=== PATIENT | female | born 1995 | race Caucasian/White ===

== ENCOUNTER 2020-04-01 14:59 | Outpatient (CLI) | payer OTHER | END 2020-04-01 15:00 | disposition home or self-care (01) | LOC: COV 14:59 | PROVIDERS: ATTEND Family Medicine | DX: Z20.828 Contact with and (suspected) exposure to other viral communicable diseases (principal) ==

== ENCOUNTER 2022-03-12 16:04 | Emergency (ER) | payer OTHER ==
[2022-03-12 16:36] LABS: RAPID STREP SCREEN POSITIVE (Negative)
[2022-03-12] MEDS ORDERED: DEXAMETHASONE 10 MG/ML VIAL IM STA (17:32)
[2022-03-12] MEDS ORDERED: AMOXICILLIN 250 MG CAPSULE PO STA (17:32)
--- NOTE | 2022-03-12 17:47 | ED Physician Documentation ---
PD HPI HEENT - Stated complaint Stated Complaint: SORE THROAT,CHILLS,HEADACHE - Chief complaint Chief Complaint: Heent - History obtained from History obtained from: Patient - Additional information Additional information: Patient comes to the emergency department chief complaint of sore throat for the last couple of days. She states she is felt hot and cold but has not measured a temperature. She states that she even has pain on the outside of her neck because her throat hurts so bad. She states her tonsils feel swollen and it is hard to swallow. No rhinorrhea or cough. No body aches. No other complaints at this time. Review of Systems Ten Systems: 10 systems reviewed and negative Constitutional: reports: Fever (Subjective), Chills Eyes: reports: Reviewed and negative Ears: reports: Reviewed and negative Nose: reports: Reviewed and negative Throat: reports: Sore throat Cardiac: reports: Reviewed and negative Respiratory: reports: Reviewed and negative GI: reports: Reviewed and negative : reports: Reviewed and negative Skin: reports: Reviewed and negative Musculoskeletal: reports: Reviewed and negative Neurologic: reports: Reviewed and negative Psychiatric: reports: Reviewed and negative Endocrine: reports: Reviewed and negative Immunocompromised: reports: Reviewed and negative PD PAST MEDICAL HISTORY - Present Medications Home Medications: Ambulatory Orders Medication Instructions Recorded Confirmed Amoxicillin 500 mg PO TID 7 Days #21 cap 03/12/22 HYDROcod/ACETAM 5/325 [[place] 5/325] 1 - 2 tablet PO Q6H PRN #10 tablet 03/12/22 predniSONE [Deltasone] 60 mg PO DAILY 3 Days #9 tablet 03/12/22 - Allergies Allergies/Adverse Reactions: Allergies Allergy/AdvReac Type Severity Reaction Status Date / Time No Known Drug Allergies Allergy Verified 03/12/22 16:21 PD ED PE NORMAL - Vitals Vital signs reviewed: Yes - General General: Alert and oriented X 3, No acute distress, Well developed/nourished - HEENT HEENT: Atraumatic, PERRL, EOMI, Moist mucous membranes, Other (Voice is muffled. Tonsils are 3+, And along with the uvula and posterior pharynx, or bright red. Thick exudates are noted over both tonsils.) - Neck Neck: Supple, no meningeal sign, Other (Mild bilateral anterior cervical lymphadenopathy.) - Respiratory Respiratory: No respiratory distress (No stridor) - Derm Derm: Normal color, Warm and dry, No rash - Extremities Extremities: No deformity - Neuro Neuro: Alert and oriented X 3 - Psych Psych: Normal mood, Normal affect Results - Vitals Vitals: Vital Signs - 24 hr 03/12/22 16:18 Temperature 36.1 C L Heart Rate 109 H Respiratory 18 Rate Blood Pressure 122/82 H O2 Saturation 98 Oxygen O2 Source Room air - Labs Labs: Laboratory Tests 03/12/22 16:24 Group A Strep Rapid POSITIVE H PD MEDICAL DECISION MAKING - ED course Complexity details: reviewed results, re-evaluated patient, considered differential, d/w patient ED course: The patient strep test was positive. She was treated symptomatically with IM Decadron and a dose of amoxicillin. We have discussed the need for antibiotics, and also, principles of symptomatic management at home. We have discussed the usual indications for return. Departure - Departure Disposition: 01 Home, Self Care Clinical Impression: Strep pharyngitis Condition: Stable Instructions: ED Strep Pharyngitis Conf Prescriptions: Amoxicillin 500 mg PO TID 7 Days #21 cap predniSONE [Deltasone] 60 mg PO DAILY 3 Days #9 tablet HYDROcod/ACETAM 5/325 [[place] 5/325] 1 - 2 tablet PO Q6H PRN #10 tablet PRN Reason: Pain Comments: Your test is positive for strep. Prescriptions for antibiotics, steroids, and pain medication have been electronically transmitted to [facility] pharmacy in [place]. You do not need to take another dose of antibiotic until tomorrow morning, but you may start the other medication whenever you need. Please be sure to drink fluids is much as possible. Your throat should start to feel a lot better in the next 48 hours.
[2022-03-12 17:55] VITALS: BP 118/76
== END 2022-03-12 17:55 | disposition home or self-care (01) ==
LOC: ED 16:04
DX: J02.0 Streptococcal pharyngitis (principal)
CPT/HCPCS: 87430; 96372; 99282; 99283; A9270

== ENCOUNTER 2022-10-01 07:16 | Outpatient (CLI) | payer OTHER | END 2022-10-01 23:59 | disposition EMS.NT | LOC: EMS 07:16 | DX: S61.214A Laceration without foreign body of right ring finger without damage to nail, initial encounter (principal); W26.8XXA Contact with other sharp object(s), not elsewhere classified, initial encounter; Y92.000 Kitchen of unspecified non-institutional (private) residence as the place of occurrence of the external cause ==

== ENCOUNTER 2022-10-01 08:06 | Emergency (ER) | payer OTHER ==
[2022-10-01 08:21] VITALS: BP 107/67
[2022-10-01] MEDS ORDERED: lidocaine 1% 20 ML MDV SUBQ ONE (09:24)
[2022-10-01] MEDS ORDERED: BACITRACIN ZINC OINT 1 PACKET TOP STA (10:05)
[2022-10-01] MEDS ORDERED: TETANUS/DIPHTHERIA/PERTUSSIS 0.5 ML SYRINGE IM ONE (10:05)
--- NOTE | 2022-10-01 10:07 | ED Physician Documentation ---
PD HPI UPPER EXT INJURY - Stated complaint Stated Complaint: RT FINGER LAC - Chief complaint Chief Complaint: Laceration - History obtained from History obtained from: Patient - Additonal information Additional information: The patient comes to the emergency department chief complaint of laceration to right ring finger after trying to pry a newly opened can lid off. She states that her finger slipped and sliced across the edge of the can. No other complaints at this time. The injury happened about an hour and a half ago. She is not sure when her last tetanus shot was but she thinks it is when she was in middle school. PD PAST MEDICAL HISTORY - Present Medications Home Medications: Ambulatory Orders Medication Instructions Recorded Confirmed Amoxicillin 500 mg PO TID 7 Days #21 cap 03/12/22 HYDROcod/ACETAM 5/325 [[place] 5/325] 1 - 2 tablet PO Q6H PRN #10 tablet 03/12/22 predniSONE [Deltasone] 60 mg PO DAILY 3 Days #9 tablet 03/12/22 - Allergies Allergies/Adverse Reactions: Allergies Allergy/AdvReac Type Severity Reaction Status Date / Time No Known Drug Allergies Allergy Verified 10/01/22 08:21 PD ED PE NORMAL - Vitals Vital signs reviewed: Yes - General General: Alert and oriented X 3, No acute distress, Well developed/nourished - HEENT HEENT: Atraumatic, PERRL, EOMI, Moist mucous membranes - Neck Neck: Supple, no meningeal sign - Cardiac Cardiac: Strong equal pulses - Respiratory Respiratory: No respiratory distress - Derm Derm: Warm and dry, Other (2.5 cm laceration midway between the PIP and DIP joints on the flexor surface of right ring finger, linear, no foreign bodies. Mild oozing of blood. No pulsatile bleeding. No tendon noted in the wound.) - Extremities Extremities: No deformity, Other (Intact resistance to flexion at DIP joint of right ring finger.) - Neuro Neuro: Alert and oriented X 3, No motor deficit, No sensory deficit - Psych Psych: Normal mood, Normal affect Results - Vitals Vitals: Vital Signs - 24 hr 10/01/22 08:18 Temperature 36.4 C L Heart Rate 64 Respiratory 20 Rate Blood Pressure 107/67 O2 Saturation 99 Oxygen O2 Source Room air Procedures - Laceration (location) Right ring finger Length in cm: 2.5 Wound type: Linear, Into subcut fat, Clean Neurovascular status: Sensory intact, Motor intact, Vascular intact Tendon involvement: Tendon intact Anesthesia: Lidocaine 1% Wound preparation: Hibiclens, Irrigated copiously NS, Wound explored, To the base (Depth does not extend to tendon) Skin layer closure: Nylon, Interrupted, Size #-0 - enter number (5.0), Sutures - enter # (7) Other: Patient tolerated well, No complications, Neurovascular intact, Dressing applied, Tetanus booster given PD Medical Decision Making - ED course Complexity details: considered differential, d/w patient ED course: The patient's wound was repaired as above. We have discussed wound care at home as well as the timeline for wound check and suture removal. We have also discussed symptoms of infection that should prompt the patient to seek medical attention sooner Departure - Departure Disposition: 01 Home, Self Care Clinical Impression: Laceration Condition: Stable Instructions: ED Laceration Hand Comments: Your wound has been repaired with 7 synthetic sutures today. These will need to stay in for 7 days, at which time you should have your wound rechecked by medical professional and if it is deemed ready, have the sutures removed. You may let water and soap run over the wound but please do not rub, scrub, or immerse the wound while the sutures are in. This is to prevent infection. If you begin to notice redness and swelling spreading progressively away from the wound, or if the wound was dry and scabbed, but begins to become "mushy" and exhibit drainage, you should have it rechecked immediately. You may cover the wound with a simple dressing or bandage until a scab has formed. Once the scab forms, you may leave it open to air. You may use her hand as feels tolerable, but please avoid any hypotension or high friction activities involving the hand until the sutures are removed.
== END 2022-10-01 10:17 | disposition home or self-care (01) ==
LOC: ED 08:06
DX: S61.214A Laceration without foreign body of right ring finger without damage to nail, initial encounter (principal); W26.8XXA Contact with other sharp object(s), not elsewhere classified, initial encounter; Y93.G1 Activity, food preparation and clean up
CPT/HCPCS: 12001; 90471; 90715; 99283; A9270

== ENCOUNTER 2023-10-24 11:30 | Outpatient (CLI) | payer OTHER ==
--- NOTE | 2023-10-24 14:31 | XRAY Report ---
PROCEDURE: Knee 1-2V RT INDICATIONS: KNEE PAIN, RIGHT TECHNIQUE: 2 views of the knee(s) were acquired. COMPARISON: None. FINDINGS: Bones: No fractures or dislocations. No suspicious bony lesions. Soft tissues: Mild knee joint effusion. No suspicious soft tissue calcifications or masses. IMPRESSION: Mild effusion. No visualized acute fracture or dislocation. However, occult injury cannot be excluded . Recommend short interval imaging follow-up in 7-10 days as clinically indicated for additional eval uation. Reviewed by: Roxann Dominguez MD on 10/24/2023 2:30 PM PDT Approved by: Roxann Dominguez MD on 10/24/2023 2:30 PM PDT Station ID: [id number]
== END 2023-10-24 11:45 | disposition home or self-care (01) ==
LOC: DI.N 11:30
PROVIDERS: ATTEND Physician Assistant Medical
DX: M25.561 Pain in right knee (principal)